=== PATIENT | female | born 1970 | race Caucasian/White ===

== ENCOUNTER 2016-12-01 15:53 | Emergency (ER) | payer OTHER ==
[2016-12-01] MEDS ORDERED: SODIUM CHLORIDE 0.9% 1,000 ML IV STA (16:30)
[2016-12-01] MEDS ORDERED: ALBUTEROL NEBULIZED 2.5 MG/3 ML INHALATION STA (16:30)
[2016-12-01] MEDS ORDERED: methylPREDNISolone SOD SUCCI 125 MG/2 ML VIAL IV STA (16:30)
[2016-12-01] MEDS ORDERED: IPRATROPIUM 0.5 MG/2.5 ML NEBU INHALATION STA (16:30)
--- NOTE | 2016-12-01 17:07 | ED ---
URI HPI - General Chief Complaint: Upper Respiratory Infection Stated Complaint: Diff breathing Time Seen by Provider: 12/01/16 16:24 Source: patient, RN notes reviewed Mode of arrival: ambulatory Limitations: no limitations - History of Present Illness Initial Comments: 46 yo female presents to the ER with cc of SOB. Patient states she's had a cough with sputum production for the last few weeks. Patient states that she has been having a steroid Dosepak about a week ago with no improvement. Patient states she's been doing her breathing treatment with no improvement. Patient states smoke. Patient states that she was concerned due to her continued symptoms so she thought that she should be evaluated. Patient denies any fever or chills. Patient states she does feel shortness of breath. Patient denies any recent fever, chills, chest pain, back pain, abdominal pain, nausea vomiting, numbness or tingling, dysuria or hematuria, constipation or diarrhea, headaches or visual changes, or any other current symptoms. - Related Data Home Medications Medication Instructions Recorded Confirmed Albuterol Inhaler [Ventolin Hfa 2 puff INHALATION RT-Q6H PRN 12/01/16 12/01/16 Inhaler] Albuterol Nebulized [Ventolin 2.5 mg INHALATION RT-QID PRN 12/01/16 12/01/16 Nebulized] Atorvastatin [Lipitor] 40 mg PO HS 12/01/16 12/01/16 DULoxetine HCL [Cymbalta] 60 mg PO HS 12/01/16 12/01/16 Diclofenac Sodium [Voltaren] 75 mg PO BID 12/01/16 12/01/16 Docusate [Colace] 100 mg PO BID 12/01/16 12/01/16 HYDROcodone/APAP 10-325MG [Opp 1 tab PO 5XD PRN 12/01/16 12/01/16 10-325] LORazepam [Ativan] 1 mg PO BID 12/01/16 12/01/16 Loratadine [Claritin] 10 mg PO HS 12/01/16 12/01/16 Methocarbamol [Robaxin] 750 mg PO BID 12/01/16 12/01/16 Ranitidine HCl [Zantac] 150 mg PO QAM 12/01/16 12/01/16 Ranitidine HCl [Zantac] 300 mg PO HS 12/01/16 12/01/16 buPROPion XL [Wellbutrin Xl] 150 mg PO QAM 12/01/16 12/01/16 metFORMIN HCL [Metformin HCl] 500 mg PO BID 12/01/16 12/01/16 Previous Rx's Medication Instructions Recorded Albuterol Inhaler [Ventolin Hfa 1 - 2 puff INHALATION Q4-6H PRN #1 12/01/16 Inhaler] inhaler Albuterol Nebulized [Ventolin 2.5 mg INHALATION Q4H #20 nebu 12/01/16 Nebulized] Azithromycin [Zithromax] 250 mg PO DIRECTED #6 tab 12/01/16 predniSONE 50 mg PO DAILY #5 tab 12/01/16 Allergies Allergy/AdvReac Type Severity Reaction Status Date / Time levofloxacin [From Levaquin] AdvReac Nausea & Verified 12/01/16 16:50 Vomiting sulfamethoxazole AdvReac Nausea & Verified 12/01/16 16:50 [From Bactrim] Vomiting trimethoprim [From Bactrim] AdvReac Nausea & Verified 12/01/16 16:50 Vomiting Review of Systems ROS Statement: Those systems with pertinent positive or pertinent negative responses have been documented in the HPI. ROS Other: All systems not noted in ROS Statement are negative. Past Medical History Additional Past Medical History / Comment(s): back pain, depression, anxiety, arthritis, carpel tunnel History of Any Multi-Drug Resistant Organisms: None Reported Past Surgical History: Back Surgery, Cholecystectomy, Orthopedic Surgery Past Psychological History: Anxiety, Depression Smoking Status: Current every day smoker Past Alcohol Use History: None Reported Past Drug Use History: Marijuana General Exam - General Exam Comments Initial Comments: General: The patient is awake and alert, in no distress, and does not appear acutely ill. Eye: Pupils are equal, round and reactive to light, extra-ocular movements are intact; there is normal conjunctiva bilaterally. No signs of icterus. Ears, nose, mouth and throat: There are moist mucous membranes and no oral lesions. Neck: The neck is supple, there is no tenderness. Cardiovascular: There is a regular rate and rhythm. No murmur, rub or gallop is appreciated. Respiratory: Lungs are clear to auscultation, respirations are non-labored, breath sounds are equal. Diffuse expiratory wheeze, no stridor, rales, or rhonchi. Gastrointestinal: Soft, non-distended, non-tender abdomen without masses or organomegaly noted. There is no rebound or guarding present. No CVA tenderness. Bowel sounds are unremarkable. Back: There is no tenderness to palpation in the midline. There is no obvious deformity. No rashes noted. Musculoskeletal: Normal ROM, no tenderness, There is no pedal edema. There is no calf tenderness or swelling. Sensation intact. Pulses equal bilaterally 2+. Neurological: CN II-XII intact, There are no obvious motor or sensory deficits. Coordination appears grossly intact. Speech is normal. Skin: Skin is warm and dry and no rashes or lesions are noted. Psychiatric: Cooperative, appropriate mood & affect, normal judgment. Limitations: no limitations Course Vital Signs 12/01/16 12/01/16 12/01/16 16:14 17:19 17:23 Temperature 98.4 F 98.6 F Pulse Rate 88 86 Respiratory 20 20 Rate Blood Pressure 121/71 O2 Sat by Pulse 98 Oximetry 12/01/16 12/01/16 12/01/16 17:34 17:35 17:47 Temperature Pulse Rate 86 86 88 Respiratory Rate Blood Pressure O2 Sat by Pulse Oximetry Medical Decision Making - Medical Decision Making 46 yo female presents to the ER with cc of SOB. At this time after treatment patient is feeling better. Patient presented due to bronchitis. Due to the fact that longer than 2 weeks ago per speech on steroids and antibiotics breathing treatments and chemotherapy her. With her doctor. We discussed return parameters and all the questions. She stated that she understood and she is feeling plan. She will be discharged home. - Lab Data Result diagrams: 12/01/16 17:10 12/01/16 17:10 Lab Results 12/01/16 12/01/16 Range/Units 17:10 17:10 WBC 8.5 (3.8-10.6) k/uL RBC 4.10 (3.80-5.40) m/uL Hgb 13.2 (11.4-16.0) gm/dL Hct 40.5 (34.0-46.0) % MCV 98.8 (80.0-100.0) fL MCH 32.2 (25.0-35.0) pg MCHC 32.6 (31.0-37.0) g/dL RDW 14.0 (11.5-15.5) % Plt Count 243 (150-450) k/uL Neutrophils % 58 % Lymphocytes % 29 % Monocytes % 6 % Eosinophils % 4 % Basophils % 1 % Neutrophils # 4.9 (1.3-7.7) k/uL Lymphocytes # 2.5 (1.0-4.8) k/uL Monocytes # 0.5 (0-1.0) k/uL Eosinophils # 0.4 (0-0.7) k/uL Basophils # 0.1 (0-0.2) k/uL Sodium 145 (137-145) mmol/L Potassium 3.5 (3.5-5.1) mmol/L Chloride 111 H (98-107) mmol/L Carbon Dioxide 24 (22-30) mmol/L Anion Gap 10 mmol/L BUN 11 (7-17) mg/dL Creatinine 0.59 (0.52-1.04) mg/dL Est GFR (MDRD) Af Amer >60 (>60 ml/min/1.73 sqM) Est GFR (MDRD) Non-Af >60 (>60 ml/min/1.73 sqM) Glucose 101 H (74-99) mg/dL Calcium 9.0 (8.4-10.2) mg/dL Total Bilirubin 0.5 (0.2-1.3) mg/dL AST 14 (14-36) U/L ALT 25 (9-52) U/L Alkaline Phosphatase 67 (38-126) U/L Total Protein 6.7 (6.3-8.2) g/dL Albumin 3.9 (3.5-5.0) g/dL - Radiology Data Radiology results: report reviewed, image reviewed Disposition Clinical Impression: Acute bronchitis Disposition: HOME SELF-CARE Condition: Stable Instructions: Acute Bronchitis (ED) Additional Instructions: Please use medication as discussed. Please follow up with family doctor if symptoms have not improved over the next two days. Please return to the emergency room if your symptoms increase or worsen or for any other concerns. Prescriptions: Albuterol Inhaler [Ventolin Hfa Inhaler] 1 - 2 puff INHALATION Q4-6H PRN #1 inhaler PRN Reason: Cough Albuterol Nebulized [Ventolin Nebulized] 2.5 mg INHALATION Q4H #20 nebu Azithromycin [Zithromax] 250 mg PO DIRECTED #6 tab predniSONE 50 mg PO DAILY #5 tab Referrals: Adarsh Puente DO [STAFF PHYSICIAN] - 1-2 days Time of Disposition: 18:25
[2016-12-01 17:31] LABS: Basophils # (A) 0.1 k/uL (0-0.2); Basophils % (A) 1 %; CH 32.5; CHCM 33.1; Eosinophils # (A) 0.4 k/uL (0-0.7); Eosinophils % (A) 4 %; HCT 40.5 % (34.0-46.0); HDW 2.43; HGB 13.2 gm/dL (11.4-16.0); Luc # (Auto) 0.19; Luc % (Auto) 2; Lymphocytes # (A) 2.5 k/uL (1.0-4.8); Lymphocytes % (A) 29 %; MCH 32.2 pg (25.0-35.0); MCHC 32.6 g/dL (31.0-37.0); MCV 98.8 fL (80.0-100.0); Monocytes # (A) 0.5 k/uL (0-1.0); Monocytes % (A) 6 %; Neutrophils # (A) 4.9 k/uL (1.3-7.7); Neutrophils % (A) 58 %; WBC 8.5 k/uL (3.8-10.6); WBC (Perox) 8.81
[2016-12-01 17:40] LABS: ALT 25 U/L (9-52); AST 14 U/L (14-36); Alkaline Phosphatase 67 U/L (38-126); Anion Gap 10 mmol/L; Blood Urea Nitrogen 11 mg/dL (7-17); Carbon Dioxide 24 mmol/L (22-30); Chloride 111 mmol/L (98-107); Glucose 101 mg/dL (74-99); Non-African American GFR(MDRD) >60 (>60 ml/min/1.73 sqM); Potassium 3.5 mmol/L (3.5-5.1); Sodium 145 mmol/L (137-145); Total Bilirubin 0.5 mg/dL (0.2-1.3); Total Protein 6.7 g/dL (6.3-8.2)
--- NOTE | 2016-12-01 18:18 | XR ---
EXAMINATION TYPE: XR chest 2V DATE OF EXAM: 12/01/2016 COMPARISON: NONE INDICATION: Cough, history of asthma TECHNIQUE: Frontal and lateral views of the chest are obtained. FINDINGS: The heart size is normal. The pulmonary vasculature is normal. The lungs are clear. IMPRESSION: 1. No acute pulmonary process.
[2016-12-01 18:37] VITALS: BP 111/65; PULSE 79; RESP 18; TEMP 97.3
== END 2016-12-01 18:46 | disposition home or self-care (01) ==
LOC: EC 15:53
DX: J20.9 Acute bronchitis, unspecified (principal); F32.9 Major depressive disorder, single episode, unspecified; F41.9 Anxiety disorder, unspecified; F17.200 Nicotine dependence, unspecified, uncomplicated; Z79.84 Long term (current) use of oral hypoglycemic drugs; Z79.899 Other long term (current) drug therapy; Z88.1 Allergy status to other antibiotic agents
CPT/HCPCS: 36415; 94640 ×2; 80053; 85025; 71020; 99283; 96374; 96361; J2930